=== PATIENT | male | born 1930 | race Caucasian/White ===

== ENCOUNTER 2018-01-19 10:49 | Outpatient (CLI) | END 2018-01-19 10:50 | disposition home or self-care (01) | LOC: FCC-LAB 10:49 | PROVIDERS: ATTEND Family Medicine | DX: L01.03 Bullous impetigo (principal) | CPT/HCPCS: 87070 ==

== ENCOUNTER 2018-05-24 10:29 | Outpatient (CLI) | END 2018-05-24 10:30 | disposition home or self-care (01) | LOC: FCC-LAB 10:29 | PROVIDERS: ATTEND Family Medicine | DX: E78.5 Hyperlipidemia, unspecified (principal); E11.9 Type 2 diabetes mellitus without complications | CPT/HCPCS: 36415; 80053; 80061; 82043; 83037; 85025 ==

== ENCOUNTER 2018-07-11 09:00 | Outpatient (RCR) ==
--- NOTE | 2018-06-20 08:38 | RS.OPPTEV2 ---
Date of Note: 06/19/18 Visit #: 1 Date of Evaluation: 06/19/18 Payer Source: MEDICARE Surgery Performed?: No Treatment Diagnosis: generalized weakness, balance problem History of Condition/Mechanism of Injury:: pt reports he has aching in BLE and in his low back. He states that he is a little "wobbly" at times. Prior Level of Function.....Patient was independent with: ADL's, Self Care, Caregiving, Ambulation/Mobility, Community Integration/Access Level of Function: pt very active working around the house and in the yard. Functional Limitations: Lifting, Bending, Squatting, Ambulation Current Subjective/complaints:: pt reports his main problem is the achiness and weakness in BLE as well as some pain in low back. States he is a little wobbly but doesn't know why the md put balance impairment as an issue. Treatment Side (optional): N/A *Precautions: n/a Medical History Medical History: Diabetes, Arthritis Smoking Status: Never smoker Hx Home Medications: insulin, tamulosin, Patient's Goals: legs to be stronger and not achy and decrease back pain. Pain Assessment - Pain Description Pain Location: low back (center) as well as BLE Pain Description: Aching Other Comments regarding Pain:: reports no pain in either location at rest. States pain begins with prolonged standing or bending. Functional Outcome Measure Tinetti: 19 (32%) - G Codes & Severity Modifier G Codes & Modifier: mobility walking and moving around: current CJ. mobility walking and moving around: goal CI Source of G Code score: tinetti balance assessment Observation - Observation Inspection: BLE hamstring and piriformis tightness noted Posture: Forward Head, Rounded Shoulders, Increased Thoracic Kyphosis, Decreased Lumbar Lordosis Handedness: Right Gait - Gait Pattern General Gait Pattern Observation: Narrow Based Gait, Decrease Stride Lngth (R), Decrease Stride Lngth (L) Gait Comments: pt amb with flexed posture, decreased step length, decreased ADRIENNE. pt with occasional lat LOB which he corrected independently. pt amb with straight cane. General Range of Motion: WFL's Bue and BLE. Lumbar ROM WFL's with pain with lumbar flex. Muscle Strength: BUE 5/5. RLE hip flex 4/5, knee flex/ext 4+/5, ankle DF/PF 4-/ 5. LLE hip flex 4/5, knee flex/ext 4+/5, ankle DF/PF 4+/5 Palpation Palpation Findings: None/Normal Sensation - Sensation Right Upper Extremity: Intact/Normal Left Upper Extremity: Intact/Normal Right Lower Extremity: Intact/Normal Left Lower Extremity: Intact/Normal Balance - Sitting Balance Static Sitting Balance: Normal Dynamic Sitting Balance: Normal - Standing Balance Static Standing Balance: Good Dynamic Standing Balance: Fair - Comments Balance Assessment Comments: Tinetti score 19/28 consistent with moderate risk of falls. gait speed: 0.9meters/second which is consistent with community ambulator. 30 sec sit to/from stand: 12 in 30 secs. Interventions - Exercise/Activities/Manual Therapy Exercises/Activities: pt performed BLE AP, LAQ, seated hip flex, seated hip abd with green theraband x 5-10 reps. pt also performed isometric hip add x 5 reps. pt demonstrated stretches he does daily which include hamstring stretch, knee to chest, and piriformis stretch. Manual Therapy: n/a HOME EXERCISE PROGRAM: pt given written HEP including: AP, LAQ, seated hip flex , seated hip abd with green theraband, as well as isometric hip add. - Charges Timed Code Treatment Minutes: 48 Total Treatment Time: 54 Procedures billed for this date of service:: eval med, ex EVALUATION COMPLEXITY LEVEL EVALUATION COMPLEXITY LEVEL: HISTORY: Medium (DM, OA, balance impairment), EXAM OF BODY SYSTEMS: Medium (strength, balance, posture, pain, gait ), CLINICAL PRESENTATION: Medium, CLINICAL DECISION MAKING: Medium Assessment Assessment: pt presents with decreased strength BLE, decreased balance and gait safety. Feel pt would benefit from skilled PT for therex for strengthening and balance activities to improve functional mobility and decrease risk of falls. Patient Education: Home Exercise Program, Education of Plan of Care Rehab Potential: Good Short Term Goals Goal #1: Improve BLE strength 4 +/5 except R ankle 4/5 Goal to be met by: 07/10/18 Goal #2: Improve dyn stand balance as noted by tinetti score 22/28 Goal to be met by: 07/10/18 Goal #3: pt independent with initial HEP Goal to be met by: 07/10/18 Goal #4: No reports of pain with activity Goal to be met by: 07/10/18 Production Broaching Machine Operator Goals Goal #1: pt demonstrate gait speed 1.2 m/s to improve safety with amb in community Goal to be met by: 07/31/18 Goal #2: pt report ability to perform normal daily activities without pain Goal to be met by: 07/31/18 Goal #3: pt at low risk for falls as noted by tinetti score Goal to be met by: 07/31/18 Plan - Treatment to be Provided Procedures: Therapeutic Exercises, Therapeutic Activity, Gait Training, Neuromuscular Rehab, Patient Education Modalities: Cryotherapy, Hot Packs - Treatment Plan Frequency: 2-3 a week Duration: 6 weeks ORDER # VISITS AND/OR THROUGH DATE: 07/31/18 - Treatment Code (1) Muscle weakness Code(s): M62.81 - MUSCLE WEAKNESS (GENERALIZED) (2) Balance problem Code(s): R26.89 - OTHER ABNORMALITIES OF GAIT AND MOBILITY (3) Difficulty walking Code(s): R26.2 - DIFFICULTY IN WALKING, NOT ELSEWHERE CLASSIFIED
--- NOTE | 2018-06-21 09:19 | RS.OPPTDN ---
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 *Precautions: n/a Pain Assessment - Pain Description Pain Description: Dull, Aching Pain Description: cramps in the legs Current Pain Intensity: not rated Interventions - Exercise/Activities/Manual Therapy Exercises/Activities: 45 mins. total beginning on leg press using both LE's,3/ 15 @ 45 # ,then isometric hip abd /adduction using small therapy ball.Seated LAQ 's and seated hip flexion with 2 # ,3/10 each.Discussed joint protection as he exercises. Total minutes of Exercise: 45 Manual Therapy: n/a Total minutes of Manual Therapy: 0 HOME EXERCISE PROGRAM: pt given written HEP including: AP, LAQ, seated hip flex , seated hip abd with green theraband, as well as isometric hip add. 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 Patient Education: Education of diagnosis, Body/Joint mechanics, Home Exercise Program, Home Safety, Activity Modification, Education of Plan of Care Patient demonstrates compliance with HEP?: Yes Short Term Goals Goal #1: Improve BLE strength 4 +/5 except R ankle 4/5 Goal to be met by: 07/10/18 Goal #2: Improve dyn stand balance as noted by tinetti score Goal to be met by: 07/10/18 Goal #3: pt independent with initial HEP Goal to be met by: 07/10/18 Progress towards Goal:: Progressing Goal #4: No reports of pain with activity Goal to be met by: 07/10/18 Furniture Fabricator Goals Goal #1: pt demonstrate gait speed 1.2 m/s to improve safety with amb in community Goal to be met by: 07/31/18 Goal #2: pt report ability to perform normal daily activities without pain Goal to be met by: 07/31/18 Goal #3: pt at low risk for falls as noted by tinetti score Goal to be met by: 07/31/18 Plan PLAN OF CARE EXPIRES ON:: 07/31/18 ORDER # VISITS AND/OR THROUGH DATE: 07/31/18 PLAN: Cont. PT to increase LE strength,eliminate /reduce LE pain.
--- NOTE | 2018-06-23 09:32 | RS.OPPTDN ---
Subjective Date of Note: 06/23/18 Visit #: 3 Number of visits approved by Insurance: NA Date of Evaluation: 06/19/18 Payer Source: MEDICARE Treatment Diagnosis: generalized weakness, balance problem Current Subjective/complaints:: Patient repoprts increased muscle sorenes after last session ,but no sharp pain present in the joints. *Precautions: n/a Pain Assessment - Pain Description Pain Location: LE's/hips Current Pain Intensity: not rated Interventions - Exercise/Activities/Manual Therapy Exercises/Activities: 45 mins. total beginning on exercise bike x 5 mins.,leg press using both LE's,2/15 @ 45 # ,then1 set/15 @ 60 # ,hip abd /adduction using green theraband.Seated LAQ's and seated hip flexion with 2 .5 # ,3/10 each. Total minutes of Exercise: 45 Manual Therapy: n/a Total minutes of Manual Therapy: 0 HOME EXERCISE PROGRAM: pt given written HEP including: AP, LAQ, seated hip flex , seated hip abd with green theraband, as well as isometric hip add. - Charges Timed Code Treatment Minutes: 40 Total Treatment Time: 45 Procedures billed for this date of service:: ex 3 Assessment: Patient fatigues more easily today in the L LE,as opposed to the R .He does require more rest periods today as the resistance of exercises increased.He requires occasional cue to control speed of eccentric motions.He has safe sit to stand ,but has slight hesistancy before initiating gait,but this appears to be good safety awareness ,not due to a balance issue. Patient Education: Education of diagnosis, Body/Joint mechanics, Home Exercise Program, Home Safety, Activity Modification, Education of Plan of Care Patient demonstrates compliance with HEP?: Yes Short Term Goals Goal #1: Improve BLE strength 4 +/5 except R ankle 4/5 Goal to be met by: 07/10/18 Progress towards Goal:: Progressing Goal #2: Improve dyn stand balance as noted by tinetti score 22/28 Goal to be met by: 07/10/18 Progress towards Goal:: Progressing Goal #3: pt independent with initial HEP Goal to be met by: 07/10/18 Progress towards Goal:: Progressing Goal #4: No reports of pain with activity Goal to be met by: 07/10/18 Cork Molder Goals Goal #1: pt demonstrate gait speed 1.2 m/s to improve safety with amb in community Goal to be met by: 07/31/18 Goal #2: pt report ability to perform normal daily activities without pain Goal to be met by: 07/31/18 Goal #3: pt at low risk for falls as noted by tinetti score Goal to be met by: 07/31/18 Plan Dates of Cork Molder Goals: 07/31/18 Expiration date of current Insurance Approval:: NA PLAN: Continue skilled PT to increase LE strenght for safe transfers and gait on all surfaces.
--- NOTE | 2018-06-26 09:03 | RS.OPPTDN ---
Subjective Date of Note: 06/26/18 Visit #: 4 Number of visits approved by Insurance: NA Date of Evaluation: 06/19/18 Payer Source: MEDICARE Treatment Diagnosis: generalized weakness, balance problem Current Subjective/complaints:: Patient reports less soreness after last session ,as compared to the previous visit.He also has had less cramping in the calf muscles. *Precautions: n/a Pain Assessment - Pain Description Pain Location: LE's Pain Description: muscle soreness only Current Pain Intensity: not rated Interventions - Exercise/Activities/Manual Therapy Exercises/Activities: 50 mins. total beginning on exercise bike x 5 mins.,leg press using both LE's,11/24 @ 60 # ,then standing ,hip abd /adduction ,hip flexion ,calf raises.Step-ups on 6 " and 12 " step x 5 each. Total minutes of Exercise: 50 Manual Therapy: n/a Total minutes of Manual Therapy: 0 HOME EXERCISE PROGRAM: pt given written HEP including: AP, LAQ, seated hip flex , seated hip abd with green theraband, as well as isometric hip add. - Charges Timed Code Treatment Minutes: 45 Total Treatment Time: 50 Procedures billed for this date of service:: ex 3 Assessment: Progresing well,has increased strength in the LE's ,improved dynamic balance .He continues to be highly attentive and motivated to improve. Patient Education: Education of diagnosis, Body/Joint mechanics, Home Exercise Program, Home Safety, Activity Modification, Education of Plan of Care Patient demonstrates compliance with HEP?: Yes Short Term Goals Goal #1: Improve BLE strength 4 +/5 except R ankle 4/5 Goal to be met by: 07/10/18 Progress towards Goal:: Progressing Goal #2: Improve dyn stand balance as noted by tinetti score Goal to be met by: 07/10/18 Progress towards Goal:: Progressing Goal #3: pt independent with initial HEP Goal to be met by: 07/10/18 Progress towards Goal:: Progressing Goal #4: No reports of pain with activity Goal to be met by: 07/10/18 Progress towards Goal:: Progressing Mcfp Goals Goal #1: pt demonstrate gait speed 1.2 m/s to improve safety with amb in community Goal to be met by: 07/31/18 Goal #2: pt report ability to perform normal daily activities without pain Goal to be met by: 07/31/18 Goal #3: pt at low risk for falls as noted by tinetti score Goal to be met by: 07/31/18 Plan Dates of Soil Sort Worker Goals: 07/31/18 Expiration date of current Insurance Approval:: NA PLAN: Continue PT to increase LE/trunk strength for safe ADL's.
--- NOTE | 2018-06-30 09:00 | RS.OPPTDN ---
Subjective Date of Note: 06/30/18 Visit #: 5 Number of visits approved by Insurance: NA Date of Evaluation: 06/19/18 Payer Source: MEDICARE Treatment Diagnosis: generalized weakness, balance problem Current Subjective/complaints:: Reports generalized muscle soreness today ,but no sharp pain . *Precautions: n/a Interventions - Exercise/Activities/Manual Therapy Exercises/Activities: 50 mins. total beginning on exercise bike x 5 mins.,then HEP copies given/return demo by patient for stretches and strengthening for LE' s /core,including ankle pumps,QS,SLR,SKTC,DKTC,LTR,pelvic tilts,standing mini- squats,hams. curls. Total minutes of Exercise: 50 Manual Therapy: n/a Total minutes of Manual Therapy: 0 HOME EXERCISE PROGRAM: pt given written HEP including: AP, LAQ, seated hip flex , seated hip abd with green theraband, as well as isometric hip add.ADDED exercises noted above. - Charges Timed Code Treatment Minutes: 45 Total Treatment Time: 50 Procedures billed for this date of service:: ex 3 Assessment: Patient has good return demo of exercises today.He reports stretch discomfort ,but no sharp pain reported.He reports increased ability to be up on his feet longer for daily tasks,also has good safety awareness. Patient Education: Education of diagnosis, Body/Joint mechanics, Home Exercise Program, Home Safety, Activity Modification, Education of Plan of Care Patient demonstrates compliance with HEP?: Yes Short Term Goals Goal #1: Improve BLE strength 4 +/5 except R ankle 4/5 Goal to be met by: 07/10/18 Progress towards Goal:: Progressing Goal #2: Improve dyn stand balance as noted by tinetti score 22/28 Goal to be met by: 07/10/18 Progress towards Goal:: Progressing Goal #3: pt independent with initial HEP Goal to be met by: 07/10/18 Progress towards Goal:: Partially Met Goal #4: No reports of pain with activity Goal to be met by: 07/10/18 Progress towards Goal:: Partially Met Group Home Goals Goal #1: pt demonstrate gait speed 1.2 m/s to improve safety with amb in community Goal to be met by: 07/31/18 Goal #2: pt report ability to perform normal daily activities without pain Goal to be met by: 07/31/18 Progress towards goal: Progressing Goal #3: pt at low risk for falls as noted by tinetti score Goal to be met by: 07/31/18 Plan Dates of Farm Agent Goals: 07/31/18 Expiration date of current Insurance Approval:: 07/31/18 PLAN: Continue PT to achieve maximum strength in the core/LE's for safe ADL's.
--- NOTE | 2018-07-04 09:14 | RS.OPPTDN ---
Subjective Date of Note: 07/04/18 Visit #: 6 Number of visits approved by Insurance: NA Date of Evaluation: 06/19/18 Payer Source: MEDICARE Treatment Diagnosis: generalized weakness, balance problem Current Subjective/complaints:: Patient reports muscle soreness only ,no sharp pain today. *Precautions: n/a Pain Assessment - Pain Description Pain Location: LE"s Pain Description: muscle soreness Interventions - Exercise/Activities/Manual Therapy Exercises/Activities: 55 mins. total beginning on exercise bike x 5 mins.,then 5 /15 reps. each of leg press @ 75# ,then seated exercises of LAq;'s,seated hip flexion with 4#.Isometric hip abd/adduction, x 10 each.Standing and side- stepping to L and R for 20 ' each direction. Total minutes of Exercise: 55 Manual Therapy: n/a Total minutes of Manual Therapy: 0 HOME EXERCISE PROGRAM: pt given written HEP including: AP, LAQ, seated hip flex , seated hip abd with green theraband, as well as isometric hip add.ADDED exercises noted above. - Charges Timed Code Treatment Minutes: 50 Total Treatment Time: 55 Procedures billed for this date of service:: ex 3 Assessment: Progressing well in all areas,has increased LE strength ,no loss of balance with transfers or gait.He reports it is easier to go up steps with the L LE.He is very active and motivated to improve. Patient Education: Education of diagnosis, Body/Joint mechanics, Home Exercise Program, Home Safety, Activity Modification, Education of Plan of Care Patient demonstrates compliance with HEP?: Yes Short Term Goals Goal #1: Improve BLE strength 4 +/5 except R ankle 4/5 Goal to be met by: 07/10/18 Progress towards Goal:: Partially Met Goal #2: Improve dyn stand balance as noted by tinetti score 22/28 Goal to be met by: 07/10/18 Progress towards Goal:: Progressing Goal #3: pt independent with initial HEP Goal to be met by: 07/10/18 Progress towards Goal:: Met Goal #4: No reports of pain with activity Goal to be met by: 07/10/18 Progress towards Goal:: Partially Met Custodial Goals Goal #1: pt demonstrate gait speed 1.2 m/s to improve safety with amb in community Goal to be met by: 07/31/18 (N/A today) Goal #2: pt report ability to perform normal daily activities without pain Goal to be met by: 07/31/18 Progress towards goal: Progressing Goal #3: pt at low risk for falls as noted by tinetti score Goal to be met by: 07/31/18 Progress towards goal: Progressing Plan Dates of Emr Analyst Goals: 07/31/18 Expiration date of current Insurance Approval:: 07/31/18 PLAN: Cont. PT to achieve highest LOF for safe ADL,s.
--- NOTE | 2018-07-06 09:20 | RS.OPPTDN ---
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 *Precautions: n/a Pain Assessment - Pain Description Pain Location: LE's Pain Description: muscle soreness noly Interventions - Exercise/Activities/Manual Therapy Exercises/Activities: 55 mins. total beginning on exercise bike x 5 mins.,then 2 /15 reps. each of leg press @ 75# ,then 1 set/15 reps. @ 90 #. Seated exercises of LAQ's,seated hip flexion with 5#.Balance exercises of heel to toe and high steppiong with mod. assist due to chronic R ankle weakness,then side -stepping with supervision only.Gait speed test also done today,ambulates 1.14 m/s. Total minutes of Exercise: 550 Manual Therapy: n/a HOME EXERCISE PROGRAM: pt given written HEP including: AP, LAQ, seated hip flex , seated hip abd with green theraband, as well as isometric hip add.ADDED exercises noted above. - Charges Timed Code Treatment Minutes: 50 Total Treatment Time: 55 Procedures billed for this date of service:: ex2,NMR Assessment: Patient has moderate difficulty with heel to toe and high steps,but this is due to old R ankle injury ,wears ankle brace at all times when up.He has increased LE strength ,steadier transfer and safe gait with cane for longer distances,can safely walk in home distances without asssitive device. Patient Education: Education of Plan of Care Patient demonstrates compliance with HEP?: Yes Short Term Goals Goal #1: Improve BLE strength 4 +/5 except R ankle 4/5 Goal to be met by: 07/10/18 Progress towards Goal:: Partially Met Goal #2: Improve dyn stand balance as noted by tinetti score 22/28 Goal to be met by: 07/10/18 Progress towards Goal:: Progressing Goal #3: pt independent with initial HEP Goal to be met by: 07/10/18 Progress towards Goal:: Met Goal #4: No reports of pain with activity Goal to be met by: 07/10/18 Progress towards Goal:: Partially Met Meat And Seafood Manager Goals Goal #1: pt demonstrate gait speed 1.2 m/s to improve safety with amb in community Goal to be met by: 07/31/18 (1.14 m/s) Progress towards goal: Progressing Goal #2: pt report ability to perform normal daily activities without pain Goal to be met by: 07/31/18 Progress towards goal: Partially Met Goal #3: pt at low risk for falls as noted by tinetti score Goal to be met by: 07/31/18 Progress towards goal: Progressing Plan Dates of Meat And Seafood Manager Goals: 07/31/18 Expiration date of current Insurance Approval:: 07/31/18 PLAN: Cont. PT to increase LE and R ankle strength,achieve highest LOF possible.
--- NOTE | 2018-07-11 10:09 | RS.OPPTDN ---
Subjective Date of Note: 07/11/18 Visit #: 8 Number of visits approved by Insurance: NA Date of Evaluation: 06/19/18 Payer Source: MEDICARE Treatment Diagnosis: generalized weakness, balance problem Current Subjective/complaints:: Reports morning stiffness and soreness is less today,rested more over the weekend. *Precautions: n/a Pain Assessment - Pain Description Other Comments regarding Pain:: muscle soreness only Interventions - Exercise/Activities/Manual Therapy Exercises/Activities: 55 mins. total beginning on exercise bike x 5 mins.,then [employer] BALANCE SYSTEM programs of postural stability,limits of stability, percentage weight bearing,weight shifting,maze control ,random control,and toss/ catch game. Total minutes of Exercise: 55 Manual Therapy: n/a Total minutes of Manual Therapy: 0 HOME EXERCISE PROGRAM: pt given written HEP including: AP, LAQ, seated hip flex , seated hip abd with green theraband, as well as isometric hip add.ADDED exercises noted above. 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 trial. Patient Education: Education of diagnosis, Body/Joint mechanics, Home Exercise Program, Home Safety, Activity Modification, Education of Plan of Care Patient demonstrates compliance with HEP?: Yes Short Term Goals Goal #1: Improve BLE strength 4 +/5 except R ankle 4/5 Goal to be met by: 07/10/18 Progress towards Goal:: Partially Met Goal #2: Improve dyn stand balance as noted by tinetti score 22/28 Goal to be met by: 07/10/18 Progress towards Goal:: Progressing Goal #3: pt independent with initial HEP Goal to be met by: 07/10/18 Progress towards Goal:: Met Goal #4: No reports of pain with activity Goal to be met by: 07/10/18 Progress towards Goal:: Partially Met [facility]iary Goals Goal #1: pt demonstrate gait speed 1.2 m/s to improve safety with amb in community Goal to be met by: 07/31/18 (1.14 m/s) Progress towards goal: Progressing Goal #2: pt report ability to perform normal daily activities without pain Goal to be met by: 07/31/18 Progress towards goal: Partially Met Goal #3: pt at low risk for falls as noted by tinetti score Goal to be met by: 07/31/18 Progress towards goal: Progressing Plan Dates of Penitentiary Goals: 07/31/18 Expiration date of current Insurance Approval:: 07/31/18 PLAN: Continue skilled PT to maximize LE /trunk strength for safe ADL's.
== END 2018-07-12 23:59 ==
PROVIDERS: ATTEND Family Medicine
DX: R53.1 Weakness (principal); R26.89 Other abnormalities of gait and mobility; R26.2 Difficulty in walking, not elsewhere classified; M62.81 Muscle weakness (generalized)

== ENCOUNTER 2018-09-15 10:36 | Outpatient (CLI) | END 2018-09-15 10:37 | disposition home or self-care (01) | LOC: LAB 10:36 → FCC-LAB 10:37 | PROVIDERS: ATTEND Family Medicine | DX: R50.9 Fever, unspecified (principal); R52 Pain, unspecified; R68.89 Other general symptoms and signs | CPT/HCPCS: 87502 ==

== ENCOUNTER 2018-11-21 10:14 | Outpatient (CLI) | END 2018-11-21 10:15 | disposition home or self-care (01) | LOC: RHC-LAB 10:14 → FCC-LAB 10:15 | PROVIDERS: ATTEND Family Medicine | DX: E11.9 Type 2 diabetes mellitus without complications (principal); I73.9 Peripheral vascular disease, unspecified; M79.605 Pain in left leg; M79.604 Pain in right leg; E83.42 Hypomagnesemia | CPT/HCPCS: 36415; 80053; 83037; 83735; 85025; 85651 ==